=== PATIENT | female | born 1995 | race Caucasian/White ===

== ENCOUNTER 2024-06-26 15:23 | Outpatient (CLI) | payer BC, SELFPAY ==
--- NOTE | ~2024-06-26 | US_ITS ---
EXAMINATION: US OB <=14 wk fetus w TV DATE: 06/26/2024 15:48 CDT INDICATION: Dating COMPARISON: 12/04/2023 TECHNIQUE: Real-time transabdominal obstetric ultrasound. FINDINGS: Last menstrual period is given as 04/15/2024 1 para 0 Estimated date of delivery by last menstrual period is 01/20/2025 The uterus measures 8.3 x 5.3 x 6.3 cm. The uterus is retroflexed. A gestational sac is identified within the fundus of the uterus. A pole is identified, with a crown-rump length that measures 1.9 cm, corresponding to an approx imate gestational age of 8 weeks and 3 days. cardiac activity is identified at a rate of 180 bpm. Despite prolonged interrogation, neither ovary was visualized. Estimated date of delivery by ultrasound is 02/02/2025 IMPRESSION: Single intrauterine gestation with an approximate gestational age of 8 weeks and 3 days, with c ardiac activity identified. Reviewed, dictated and finalized at location A. IMPRESSION: Single intrauterine gestation with an approximate gestational age of 8 weeks an d 3 days, with cardiac activity identified.
== END 2024-06-26 15:24 | disposition home or self-care (01) ==
LOC: MICIMG 15:24
PROVIDERS: PCP Obstetrics & Gynecology; Visit Provider Obstetrics & Gynecology
DX: Z34.91 Encounter for supervision of normal pregnancy, unspecified, first trimester (principal); Z3A.08 8 weeks gestation of pregnancy
CPT/HCPCS: 76801; 76817

== ENCOUNTER 2024-06-26 16:00 | Outpatient (CLI) | payer BC, SELFPAY ==
[2024-06-26 16:24] LABS: Basophils Percent Auto 0.3 % (0.2-1.2); Eosinophils Absolute Auto 0.1 K/mm3 (0-0.3); Eosinophils Percent Auto 0.9 % (0-4.4); Hematocrit 36.6 % (37.0-47.0); Hemoglobin 12.2 g/dL (12.0-15.0); Immature Granulocyte Absolute 0.02 K/mm3 (0.00-0.031); Immature Granulocyte Percent A 0.2 % (0-0.5); Lymphocytes Absolute Auto 2.89 K/mm3 (0.9-3.2); Lymphocytes Percent Auto 24.9 % (18.3-44.2); Mean Corpuscular HGB Conc 33.3 g/dl (32-36); Mean Corpuscular Hemoglobin 29.8 pg (26-34); Mean Corpuscular Volume 89.5 fl (80-100); Mean Platelet Volume 8.5 fl (7.4-10.4); Monocytes Absolute Auto 0.8 K/mm3 (0.1-0.6); Monocytes Percent Auto 6.8 % (2.6-8.5); Neutrophils Absolute Auto 7.8 K/mm3 (1.3-6.7); Neutrophils Percent Auto 66.9 % (45.5-73.1); Platelet Count Result 253 k/mm3 (150-375); Red Blood Count 4.09 M/mm3 (4.2-5.4); Red Cell Distribution Width 12.5 % (11.5-14.5); White Blood Count 11.6 K/mm3 (4.5-10.0)
[2024-06-26 17:15] LABS: HIV 1/2 Ab P24 Ag Result Negative (Negative)
[2024-06-26 17:45] LABS: Syphilis IgG/IgM Antibody Negative (Negative)
[2024-06-26 17:48] LABS: Hepatitis B Surface Antigen Negative (Negative)
[2024-06-29 16:54] LABS: CMV IgG Antibody <0.60 U/mL; Varicella IgG Antibody 4.39 S/CO
== END 2024-06-26 16:01 | disposition home or self-care (01) ==
LOC: ANHLAB 16:00
PROVIDERS: PCP Obstetrics & Gynecology; Visit Provider Obstetrics & Gynecology
DX: Z34.91 Encounter for supervision of normal pregnancy, unspecified, first trimester (principal); Z3A.08 8 weeks gestation of pregnancy
CPT/HCPCS: 36415; 81220; 81329; 84702; 85025; 86593; 86644; 86703; 86747; 86762; 86787; 86850; 86900; 86901; 87086; 87340; G0432

== ENCOUNTER 2024-11-12 11:29 | Outpatient (RCR) | payer BC, SELFPAY ==
[2024-11-10 17:52] LABS: Hematocrit 33.8 % (37.0-47.0); Hemoglobin 11.0 g/dL (12.0-15.0); Immature Granulocyte Percent A 0.3 % (0-0.5); Lymphocytes Absolute Auto 2.41 K/mm3 (0.9-3.2); Mean Corpuscular HGB Conc 32.5 g/dl (32-36); Mean Corpuscular Hemoglobin 29.4 pg (26-34); Mean Corpuscular Volume 90.4 fl (80-100); Nucleated Red Blood Cells Absolute Auto 0.000 K/mm3 (0.0-0.012); Nucleated Red Blood Cells Perc 0.0 % (0.0-0.2); Platelet Count Result 284 k/mm3 (150-375); Red Blood Count 3.74 M/mm3 (4.2-5.4); White Blood Count 14.7 K/mm3 (4.5-10.0)
[2024-11-10 18:08] LABS: Glucose 1 Hour PP 50gm Dose 99 mg/dL
[2024-11-10 18:48] LABS: HIV 1/2 Ab P24 Ag Result Negative (Negative)
[2024-11-10 18:59] LABS: Syphilis IgG/IgM Antibody Non-Reactive (Nonreactive)
[2024-11-12] MEDS: RHO(D) IMMUNE GLOBULIN 300 MCG/2 ML SYRINGE IM (09:14)
== END 2024-11-12 12:30 | disposition home or self-care (01) ==
LOC: ANHLAB 11:29
PROVIDERS: Visit Provider Obstetrics & Gynecology
DX: Z11.4 Encounter for screening for human immunodeficiency virus [HIV] (principal); Z11.3 Encounter for screening for infections with a predominantly sexual mode of transmission; Z29.13 Encounter for prophylactic Rho(D) immune globulin; O36.0190 Maternal care for anti-D [Rh] antibodies, unspecified trimester, not applicable or unspecified; Z3A.29 29 weeks gestation of pregnancy
CPT/HCPCS: 36415; 82947; 85025; 85461; 86593; 86703; 86850; 86900; 86901; 90384; 96372; G0432; J2790

== ENCOUNTER 2025-01-25 13:59 | Outpatient (CLI) | payer BC, SELFPAY ==
[2025-01-25 14:20] LABS: Hematocrit 33.8 % (37.0-47.0); Hemoglobin 11.2 g/dL (12.0-15.0); Immature Granulocyte Percent A 0.5 % (0-0.5); Lymphocytes Absolute Auto 2.09 K/mm3 (0.9-3.2); Mean Corpuscular HGB Conc 33.1 g/dl (32-36); Mean Corpuscular Hemoglobin 29.5 pg (26-34); Mean Corpuscular Volume 88.9 fl (80-100); Nucleated Red Blood Cells Absolute Auto 0.000 K/mm3 (0.0-0.012); Nucleated Red Blood Cells Perc 0.0 % (0.0-0.2); Platelet Count Result 230 k/mm3 (150-375); Red Blood Count 3.80 M/mm3 (4.2-5.4); White Blood Count 12.3 K/mm3 (4.5-10.0)
[2025-01-25 15:16] LABS: Syphilis IgG/IgM Antibody Non-Reactive (Nonreactive)
[2025-01-25 15:21] LABS: HIV 1/2 Ab P24 Ag Result Negative (Negative)
== END 2025-01-25 14:27 | disposition home or self-care (01) ==
LOC: ANHOBOP 14:03 → ANHLDR 14:04
PROVIDERS: Visit Provider Student in an Organized Health Care Education/Training Program
DX: Z34.93 Encounter for supervision of normal pregnancy, unspecified, third trimester (principal); Z3A.00 Weeks of gestation of pregnancy not specified
CPT/HCPCS: 36415; 85025; 86593; 86703; 86850; 86900; 86901; 99199; G0432

== ENCOUNTER 2025-01-27 05:20 | Inpatient (IN) | payer BC, SELFPAY ==
[2025-01-27] VITALS (50 sets, daily range): BP systolic 81–136; BP diastolic 26–81; PULSE 63–94; RESP 14–18; TEMP 36.3–37.1; O2SAT 97–100; BMI 36.3
[2025-01-27] MEDS: LACTATED RINGERS 1,000 ML 125 ML IV CONT ×2 (05:54→06:28)
[2025-01-27] MEDS: ACETAMINOPHEN 500 MG TABLET 1000 MG PO ×3 (06:28→19:30)
[2025-01-27] MEDS: ceFAZolin 2 GM in SODIUM CHLORIDE 0.9% IV 50 ML 100 ML IVPB (06:39)
--- NOTE | 2025-01-27 06:42 | LDADM ---
This patient, Riki De Leon, was admitted to Labor/Delivery/Recovery 119 on 01/27/25 at 05:20. Plans for section, pain management and were discussed with patient. Patient/family oriented to hospital policies and general routines including ID bracelet, bed and alarms, visiting hours, pain management, procedures, bathroom and other care routines, personal items, smoking policy, room service/diet and guest tray routines, infant security routines, and visiting hours. Patient/Family are encouraged to report perceived risks to care and to ask questions if they do not understand what they are told or what they should do. See OBIX for further documentation.
--- NOTE | 2025-01-27 07:08 | WPDANESEPPF ---
Anes - Initial Pre Proc Eval Procedure: Operation Date: 01/27/25 07:30 Proposed Procedures p Section - Clarence Fletcher MD Date/Time: 01/27/25 07:08 Surgeon: Clarence Fletcher MD Pre Op Diagnosis: Patient Data Age: 29 Gender: F Height: 1.68 m Weight: 102.3 kg Last Vital Signs Pulse 93 01/27/25 06:15 BP 123/77 01/27/25 06:15 O2 Del Method Room Air 01/27/25 06:58 Allergies Allergy/AdvReac Type Severity Reaction Status Date / Time No Known Allergies Allergy Verified 01/27/25 06:42 Home Medications ?Medication ?Instructions ?Recorded ?Confirmed ?Type docosahexaenoic acid 200 mg mg PO 06/22/24 01/14/25 History capsule ( DHA) aspirin 81 mg tablet,delayed 81 mg PO DAILY 08/24/24 01/14/25 History release (Adult Low Dose Aspirin) ferrous sulfate 325 mg (65 mg 325 mg PO DAILY 01/06/25 01/14/25 History iron) tablet (iron) Patient hx anesthesia problems: none Family hx anesthesia problems: none Results Review: All pre-operative results and documents have been reviewed as part of the pre-operative evaluation. COUNTS INCLUDE 234 BEDS AT THE [facility] Past Medical History Medical History Family History Family History Mother No problems noted. Social History Social History Smoking status: Never smoker Alcohol intake: former Substance use: former Substance use type: marijuana Do You Feel Safe in your Home?: Yes Lack of Transportation: No Lack of Food: Never True Current Housing: I Have Housing Concerned About Future Housing: No Difficulty Paying Gas/Electric Bills: No Difficulty Paying for Meds: No Currently Unemployed: No Education: Bachelor's Degree Difficulty w/ Childcare or Family Care: No Living arrangements: with family Occupation/Education: occupation Gender identity (if verbalized by the patient): Female Sexual Orientation (if Verbalized by the Patient): Straight or Heterosexual Spiritual care concerns: No Anes - Eval Final PreProcedure Day of Procedure 01/27/25 07:08 Patient weight: obese Heart: regular rate and rhythm Lungs: clear to auscultation Airway: Mallampati scale class II Neurological: alert and oriented Last oral intake: >/= 8 hours ASA classification: II Emergent: no Anesthetic plan: proceed Anesthesia type and monitoring: regional spinal and standard monitoring Results Review: All pre-operative results and documents have been reviewed as part of the pre-operative evaluation. Informed Consent: The patient's anesthetic plan and its attendant risks and benefits were discussed with the patient/family/POA. Questions were solicited and answers provided to the satisfaction of the patient/family/POA.
--- NOTE | 2025-01-27 07:22 | P.HP_ITS ---
H&P: HPI History of Present Illness Date/Time: 01/27/25 07:22 Chief Complaint: Intrauterine at term breech presentation Narrative: 29 yo who presents at 39w for primary secondary to breech presentation Review of Systems Cardiovascular: Cardiovascular: Denies chest pain, Denies leg edema, Denies palpitations, Denies dyspnea and Denies dyspnea on exertion Respiratory: Respiratory: Denies cough, Denies dyspnea and Denies dyspnea on exertion Gastrointestinal: Gastrointestinal: Denies abdominal pain, Denies constipation, Denies diarrhea, Denies nausea and Denies vomiting Genitourinary: Genitourinary: Denies hematuria, Denies urinary frequency, Denies dysuria, Denies pelvic pain, Denies urinary incontinence and Denies vaginal discharge Neurologic: Reports system reviewed and no additional complaints, except as documented Psychiatric: Psychiatric: Reports no additional psychiatric complaints Endocrine: Endocrine: Denies palpitations PMFSH Past Medical History Medical History Family History Family History Mother No problems noted. Social History Social History Smoking status: Never smoker Alcohol intake: former Substance use: former Substance use type: marijuana Do You Feel Safe in your Home?: Yes Lack of Transportation: No Lack of Food: Never True Current Housing: I Have Housing Concerned About Future Housing: No Difficulty Paying Gas/Electric Bills: No Difficulty Paying for Meds: No Currently Unemployed: No Education: Bachelor's Degree Difficulty w/ Childcare or Family Care: No Living arrangements: with family Occupation/Education: occupation Gender identity (if verbalized by the patient): Female Sexual Orientation (if Verbalized by the Patient): Straight or Heterosexual Spiritual care concerns: No Meds Home Medications and Allergies Home Medications ?Medication ?Instructions ?Recorded ?Confirmed ?Type docosahexaenoic acid 200 mg mg PO 06/22/24 01/14/25 Hi story capsule ( DHA) aspirin 81 mg tablet,delayed 81 mg PO DAILY 08/24/24 1 03/16/24 History release (Adult Low Dose Aspirin) ferrous sulfate 325 mg (65 mg 325 mg PO DAILY 01/06/25 01/14/25 History iron) tablet (iron) Allergies Allergy/AdvReac Type Severity Reaction Status Date / Time No Known Allergies Allergy Verified 01/27/25 06:42 Vital Signs Vital Signs - 24 hr 01/27/25 05:51 01/27/25 06:00 01/27/25 06:15 Pulse Rate 92 78 93 Blood Pressure 96/56 L 118/81 123/77 Oxygen Delivery 01/27/25 06:58 Pulse Rate Blood Pressure Oxygen Delivery Room Air Exam Const: General: no acute distress Eyes: EOM: EOMs intact bilaterally Neck: Neck: supple Thyroid: thyroid normal Chest: Breast/axilla inspection: normal inspection of the breasts Breast/axilla palpation: normal palpation of the breasts, normal palpation of the axillae and no axillary lymphadenopathy Resp: Effort & Inspection: normal respiratory effort Auscultation: clear to auscultation bilaterally Cardio: Rate: regular rate Rhythm: regular rhythm GI: Inspection: non-distended and other (Gravid) GI Palp: Yes Soft to palpation, No Tenderness to palpation present (GI) and No Guarding due to palpation present (GI) Auscultation: normal bowel sounds : Speculum Exam - Vagina: No vaginal bleeding OB/external & speculum: external exam normal; No vaginal bleeding Skin: General skin exam: normal color and no rashes or lesions noted Neuro: Cognition (Neuro): normal cognition Speech: normal speech Extrem: General: normal to inspection Psych: Mental Status: mental status grossly normal Affect: normal affect Assessment and Plan Assessment and plan (1) : Code(s): Z34.90 - Encounter for supervision of normal , unspecified, unspecified trimester Status: Acute Assessment and Plan: 29 yo who presents at 39w for primary admit to L&D routine admission orders labs reviewed Rh negative, will need rhogam GBS negative (2) malpresentation: Code(s): O32.9XX0 - Maternal care for malpresentation of fetus, unspecified, not applicable or unspecified Status: Acute Assessment and Plan: breech confirmed by bedside US
--- NOTE | 2025-01-27 07:24 | WPDHPUPDATE1 ---
History and Physical Update Update Date/Time: 01/27/25 07:24 History and Physical has been reviewed, including an updated exam of the patient. There are NO changes in the patient's condition. Risks, benefits, and alternatives have been discussed and questions answered. Patient agrees to proceed with procedure.
--- NOTE | 2025-01-27 08:19 | P.PCNOB_ITS ---
OB - Delivery Note Procedure Delivery date: 01/27/25 Pre-op diagnosis: Breech Presentation Post-op Diagnosis: Same Induction method: None Delivery monitor: External FHT Prior to decision for section, ACOG/SMFM labor guidelines were considered and discussed with the patient and staff. Decision made to proceed with the section.: Yes Procedure Performed: Primary Primary branch: low cervical, transverse Surgeon: Clarence Feltcher MD Anesthesia type: Spinal Description of Procedure/Findings: The patient was taken to the operating room. A combined spinal epidural anesthesic was administered and found to be adequate at a t-10 level. The patient was placed in a supine position with a slight left lateral tilt. A mora catheter was placed with return of clear urine. A Bovie grounding pad was placed. Surgical prep was performed and surgical drapes were placed. A surgical time out was performed. A Pfannenstiel skin incision was then made with the scalpel and carried through to the underlying layer of fascia. The fascia was then incised in the midline and the incision was extended laterally with the Deshpande scissors. The superior aspect of the fascia was then grasped with the Reddy clamps, elevated, and the underlying rectus muscles dissected off bluntly and sharply. Attention was then turned to the inferior aspect of this incision which, in a similar fashion, was grasped, tented up with the Reddy clamps, and the rectus muscles dissected off both bluntly and sharply. The rectus muscles were then in the midline. The peritoneum was identified and entered bluntly. The peritoneal incision was then extended superiorly and inferiorly with good visualization of the bladder. The vesico-uterine serosa was identified and dissected to create a bladder flap. The bladder blade was reinserted. The uterus was inspected for rotation. A low-transverse uterine incision was made sharply with the scalpel and entry was made into the uterine cavity. An amniotomy was made and copious amounts of clear fluid were noted on return. The uterine incision was extended laterally bluntly. The bladder blade was removed. The buttocks was noted at the hysterotomy with spine anterior. The buttocks was delivered through the hysterotomy. The abdomen was wrapped in a blue towel and gentle traction was applied to deliver the fetus to the sternum. The fetus was then rotated to allow delivery of the ri ght extremity by gently sweeping across the face and upper chest. Similar procedure was performed to deliver the left extremity. The head was then flexed and delivered through the hysterotomy with gentle traction. The nose and mouth were suctioned with a bulb syringe. The umbilical cord was clamped twice and cut. The infant was handed off to the waiting staff. A second segment of umbilical cord was clamped and cut for cord blood gasses. Cord blood was collected for determination of the blood type and for direct Campbell. The placenta was delivered spontaneously without difficulty. The placenta appeared grossly normal and complete. The uterus was exteriorized and cleared of all clots and debris. The uterine incision was repaired using 0-monocryl suture in a running fashion. A second layer of 0 Monocryl suture was used in an imbricating fashion to obtain excellent hemostasis and uterine strength. The uterine closure was inspected for hemostasis. The posterior aspect of the uterus and the broad ligaments were inspected and the posterior cul-de-sac cleared of fluid and blood clots. The uterine closure was again inspected and found to be hemostatic. The uterus was returned to the abdominal cavity. The pericolic gutters were inspected and were cleared of all blood clots and debris. The uterine closure was then re inspected to ensure hemostasis as were all subfascial tissues. The peritoneum was closed using 3-0 vicryl in a running fashion. The fascia was reapproximated with 0-vicryl in a running fashion. The subcutaneous tissue was irrigated and hemostasis achieved with electrocautery. It was reapproximated with 3-0 vicryl in a running fashion. The skin was closed with 4-0 vicryl in a subcuticular fashion. A sterile dressing was applied to the wound. The patient tolerated the procedure well. Sponge, lap and needle counts were correct times three. The patient was taken to recovery in stable condition and without anticipated complications. Estimated Blood Loss: 440 Drains: No Packing: No Pathology: None sent Complications: No immediate complications Condition: Stable Disposition: Floor [place] Baby Date of : 01/27/25 Gestational Age by Date: 39 Infant gender: Male presentation: breech Placenta delivery description: Manual Removal Cord Vessel Description: 3 Vessels
[2025-01-27] MEDS: OXYTOCIN 30 UNITS/NS 500 ML 30 UNITS/500 ML BAG 125 UNITS IV CONT (08:45)
--- NOTE | 2025-01-27 10:47 | PC.NURSE ---
Patient transferred to post room #282 per stretcher from labor and delivery. Support person present. Oriented to unit, room, information board, rooming in, admission packet and security measures. Patient verbalizes understanding.
[2025-01-27] MEDS: DOCUSATE SODIUM 100 MG CAPSULE PO ×2 (13:27→16:54)
[2025-01-27] MEDS: DEXTROSE 5%/0.45% SOD CHL 1,000 ML 125 ML IV CONT (13:27)
[2025-01-27] MEDS: SIMETHICONE 80 MG TAB.CHEW PO ×2 (13:28→16:54)
[2025-01-27] MEDS: KETOROLAC 15 MG/ML VIAL (*BKC) IV PUSH ×2 (13:28→19:30)
--- NOTE | 2025-01-27 18:08 | PC.NURSE ---
0920 [facility] RN called to labor room to assist with first feeding. Consulted with patient to assess needs related to . We reviewed working with the , supporting breast, protecting her nipples with an optimal deep latch, good positioning, and good hand washing. Mother was having difficulty latching infant, nipples are flat and has a tongue tie per Dr. Domínguez, was unable to maintain latch, will try a nipple shield. Encouraged understanding the benefits of skin to skin, responding to feeding cues, frequencies of feeding 8-12 times in 24 hours (approximately 2-3 hours), duration of feedings, milk production, intake/output feeding sheet and signs of adequate intake encouraging swallowing at the breast. Reviewed positioning and alignment, supporting breast, off-centered (asymmetrical latch) and leading with the chin with big, open, wide gape. latched optimally to the [left] breast in [cross cradle] position. Education given to the mother of how to visualize the suckling (with good rocking jaw motion) swallows (dropping of the lower jaw) and how to listen for drinking at the breast (the ka sound). The was [able] to maintain latch without discomfort to mother with the nipple shield. We reviewed good handwashing, cleaning the nipple shield and the appropriate way to apply and use as a tool. Discussed with mom the nipple shield precautions, possible complications associated with the risks and benefits. Reviewed practicing with a nipple shield, then without and how to protect the milk supply and production. Mom and baby guide referred to as a resource for outpatient services, community resources and when to call a provider. Mom voiced understanding of the importance of hand expression, nipple stimulation and initiating a pumping schedule if continues to nurse with the shield. Reported to the Primary RN. 1245 latched optimally to the [right] breast in [cross cradle] position with the nipple shield. The infant was [able] to maintain latch without discomfort to mother. Nipple care reviewed with optimal latch, good positioning and using clean hands when touching her breast. Resources used to facilitate learning were used from the [visual handouts/ tool/mom and baby guide]. Mother voiced understanding of the education shared, to call for assistance if the does not latch or if there is discomfort with . Reported to the Primary RN. 1600 Per Primary RN, mother is now with the nipple shield and is going to start using her own manual breast pump after each feeding with the nipple shield.
[2025-01-27] MEDS: LIDOCAINE 5% PATCH 1 PATCH TRANSDERM (19:30)
--- NOTE | 2025-01-27 20:30 | PC.NURSE ---
Breast pump provided due to nipple shield use. Instructions given on cleaning, care, usage, that there should be no pain, pumping schedule for milk production, collection, and storage of human milk. Patient was assessed for correct placement, flange size, to pump for comfort and nipple stretching/stimulation for adequate milk production every 3 hours (8 times in 24 hours) 1-2 times at night.?Mother voiced understanding of the education shared.
[2025-01-28] MEDS: KETOROLAC 15 MG/ML VIAL (*BKC) IV PUSH (01:31)
[2025-01-28] MEDS: ACETAMINOPHEN 500 MG TABLET 1000 MG PO ×4 (01:31→19:15)
[2025-01-28 05:29] LABS: Hematocrit 33.4 % (37.0-47.0); Hemoglobin 10.5 g/dL (12.0-15.0); Immature Granulocyte Percent A 0.6 % (0-0.5); Lymphocytes Absolute Auto 2.28 K/mm3 (0.9-3.2); Mean Corpuscular HGB Conc 31.4 g/dl (32-36); Mean Corpuscular Hemoglobin 29.5 pg (26-34); Mean Corpuscular Volume 93.8 fl (80-100); Nucleated Red Blood Cells Absolute Auto 0.000 K/mm3 (0.0-0.012); Nucleated Red Blood Cells Perc 0.0 % (0.0-0.2); Platelet Count Result 222 k/mm3 (150-375); Red Blood Count 3.56 M/mm3 (4.2-5.4); White Blood Count 13.7 K/mm3 (4.5-10.0)
--- NOTE | 2025-01-28 07:03 | WPDANLDPN2 ---
Anes-Prog Note L&D Date/Time: 01/28/25 07:03 Comfortable throughout: section Neuraxial method: spinal Epidural/Spinal procedure site: clean & non-tender Neuro status: Neuro function grossly intact. Cardiovascular status: normal Respiratory status: normal Airway patency: baseline Mental status: baseline Post-Op hydration status: normal Vital Signs: Last Vital Signs Temp 36.8 C 01/27/25 23:15 Pulse 82 01/27/25 23:15 Resp 16 01/27/25 23:15 BP 109/65 01/27/25 23:15 Pulse Ox 98 01/27/25 23:15 O2 Del Method Room Air 01/27/25 23:15 Pain score (VAS): 2 I/O: Intake & Output 01/27/25 01/27/25 01/28/25 15:59 23:59 07:59 Intake Total 500 1152.1 Output Total 840 2100 Balance -340 947.9 Patient feedback: Patient satisfied with anesthetic care.
--- NOTE | 2025-01-28 07:04 | WPDANLDNPN2 ---
Anes-Prog Note L&D-Neuraxial Date/Time: 01/28/25 07:04 Neuraxial medications: intrathecal PF morphine Opiod-related complaints: none Patient feedback: Patient satisfied with post-operative pain management.
[2025-01-28] MEDS: DOCUSATE SODIUM 100 MG CAPSULE PO ×2 (07:47→17:12)
[2025-01-28] MEDS: MULTIVIT/MIN/PREN/FOL AC/IRON TABLET 1 TAB PO (07:47)
[2025-01-28] MEDS: SIMETHICONE 80 MG TAB.CHEW PO ×3 (07:47→17:12)
[2025-01-28 09:20] VITALS: BP 116/65; PULSE 89; RESP 18; TEMP 37.4; O2SAT 97
--- NOTE | 2025-01-28 11:39 | P.PNOB_ITS ---
OB - PN: Subj Subjective Date/time seen: 01/28/25 11:39 Narrative: Pain OK. Tolerating diet. Would like circumcision for son. OB - PN: Obj Data Labs 01/28/25 04:03 Labs: Laboratory Results - last 24 hr 01/28/25 04:03 WBC 13.7 H RBC 3.56 L Hgb 10.5 L Hct 33.4 L MCV 93.8 D MCH 29.5 MCHC 31.4 L RDW 14.6 H Plt Count 222 MPV 9.6 Immature Gran % (Auto) 0.6 H Neut % (Auto) 76.1 H Lymph % (Auto) 16.7 L [place] % (Auto) 6.0 Eos % (Auto) 0.4 Baso % (Auto) 0.2 Lymph # (Auto) 2.28 [place] # (Auto) 0.8 H Eos # (Auto) 0.1 Baso # (Auto) 0.0 Abs Immat Gran (auto) 0.08 H Absolute Neuts (auto) 10.4 H Absolute Nucleated RBC 0.000 Nucleated RBC % 0.0 OB - PN A/P Plan Comments: A: POD#1, doing well. P: Reviewed circ. Routine care. Plan home tomorrow. Exam 2 Narrative: AVSS I/O OK ABD soft, nontender, fundus firm. Incision c/d/i. EXT nontender
[2025-01-28] MEDS: IBUPROFEN 600 MG TABLET PO ×2 (13:59→19:15)
[2025-01-28 19:15] VITALS: BP 115/72; PULSE 81; RESP 16; TEMP 37.3; O2SAT 100
[2025-01-28] MEDS: LIDOCAINE 5% PATCH 1 PATCH TRANSDERM (19:15)
[2025-01-29] MEDS: IBUPROFEN 600 MG TABLET PO ×3 (01:06→13:13)
[2025-01-29] MEDS: ACETAMINOPHEN 500 MG TABLET 1000 MG PO ×3 (01:06→13:13)
--- NOTE | 2025-01-29 05:25 | PC.NURSE ---
As of 00:21, infant Baby Aidan De Leon has not had a complete void since his circumcision, which is over 12 hours ago. Patient is noted to have trickled out a few drops of urine on 2 separate occasions, leaving yellow inside the diaper, but not enough to turn the yellow line on the diaper to blue. Dr. Mcfadden notified, and states to observe patient and urine output overnight. No new orders at this time for supplementation or otherwise. 0500- patient reports that her has had a very heavy urine diaper that soaked all the way through his diaper and clothes
[2025-01-29] MEDS: MULTIVIT/MIN/PREN/FOL AC/IRON TABLET 1 TAB PO (06:49)
[2025-01-29] MEDS: DOCUSATE SODIUM 100 MG CAPSULE PO (06:49)
[2025-01-29 06:50] VITALS: TEMP 37.5
[2025-01-29] MEDS: SIMETHICONE 80 MG TAB.CHEW PO ×2 (06:50→13:12)
[2025-01-29 07:55] VITALS: BP 128/75; PULSE 84; RESP 18; TEMP 36.7; O2SAT 98
--- NOTE | 2025-01-29 08:58 | P.DS_ITS ---
DS: Admitting Diagnosis Discharge Date 01/29/25 Admitting Diagnosis IUP at 39 weeks Breech presentation DS: Discharge Diagnosis Discharge Diagnosis (1) delivery delivered: Code(s): O82 - Encounter for delivery without indication Status: Acute OB - DS: Summary OB Procedures : NST OB Procedures Intrapartum: OB Procedures: : None Peripartum Data Procedures: Procedures Operation Date: 01/27/25 07:30 Actual Procedure Side Surgeon p Section Not Applicable Clarence Fletcher MD Time Spent with Patient Time attestation: Total time spent providing and/or coordinating discharge services: Discharge Plan Discharge Attending physician on discharge: Clarence Fletcher Discharging Clinician: Kulwinder Kelly Patient Disposition: Home Activity: may shower, may drive after 2 weeks and pelvic rest Diet: regular Wound Care Instructions: incision open to air Discharge Instructions: Call or return if temperature above 100.4? F, increased abdominal pain, increased vaginal bleeding or any new problems. Patient Language: Divehi Stand Alone Forms: General Discharge Information Follow-up/Referrals: Clarence Fletcher MD [Physician, BOX BENDER] - Call for Appointment Discharge Medications: New ibuprofen 600 mg tablet 600 mg PO Q6H PRN (Reason: cramps) Qty: 30 0RF oxycodone-acetaminophen [Endocet] 5-325 mg tablet 1 - 2 tablet PO Q6H PRN (Reason: pain) Qty: 30 0RF Continued DHA 200 mg capsule PO Discontinued aspirin [Adult Low Dose Aspirin] 81 mg tablet,delayed release (DR/EC) 81 mg PO DAILY ferrous sulfate [iron] 325 mg (65 mg iron) tablet 325 mg PO DAILY Date of admission: 01/27/25 05:20 Primary Care Provider: PHYSICIAN,CLINICAL BIOCHEMICAL GENETICIST Admitting Provider: Clarence Fletcher Attending physician on admission: Clarence Fletcher Condition: Stable
--- NOTE | 2025-01-29 09:15 | PC.NURSE ---
Consulted with mother concerning needs and she shared her ability to independently latch infant optimally without pain with the nipple shield, she is also using her breast pump and we also discussed ways to wean the nipple shield, those directions are printed in her discharge instrcutions. Mother is feeding appropriately for growth of infant and understands stimulating infant to eat if needed. Infant has had appropriate feedings in the last 24 hours meets the outcomes for weight, output, blood sugar and jaundice at this time. Reinforced understanding of milk production, transition of milk, signs of adequate intake, transition of stool, prevention/relief of engorgement, plugged ducts, mastitis, responsive watching for feeding cues, the different methods of stimulating infant to breastfeed 1-3 hours after the start of the last feeding, community resources, and when to call a provider using the resource of the feeding sheet along with the mom and baby guide. Mother voiced understanding of the information shared, is confident to continue effectively her at home, when to call for assistance, denies any additional assistance or education at this time. Reported to the Primary RN.
--- NOTE | 2025-01-29 10:06 | PC.NURSE ---
Addendum entered by Angelica Sanchez, RN 01/29/25 10:08: Dr Kelly had phoned in at 0900 Original Note: Dr Kelly phoned in for pt update Reviewed current status and pt desire for DC home Dr Kelly states he will put in order for discharge home
--- NOTE | 2025-01-29 13:05 | PC.NURSE ---
Follow up appointment changed from 02/01 at 1230 to 01/30 at 11:00 due to cancellation Reviewed update with pt and explained appt for her and baby Pt v/u
== END 2025-01-29 13:23 | disposition home or self-care (01) | DRG 788 ==
LOC: ANHOB2 01-29 09:03 → ANHLDR 02-02 09:37
PROVIDERS: Admitting Provider Student in an Organized Health Care Education/Training Program; Visit Provider Obstetrics & Gynecology
PROC: 10907ZC Drainage of Amniotic Fluid, Therapeutic from Products of Conception, Via Natural or Artificial Opening (ICD-10-PCS; CPT 59514; principal; 2025-01-27 07:30)
DX: O32.1XX0 Maternal care for breech presentation, not applicable or unspecified (principal); Z37.0 Single live birth; Z3A.39 39 weeks gestation of pregnancy
CPT/HCPCS: 36415; 85025; J0690; A9270; J1885; J2274; J2405; J2590; J7120